=== PATIENT | male | born 1980 | race Caucasian/White ===

== ENCOUNTER → 2022-01-20 11:22 | Outpatient (CLI) | payer OTHER, SELFPAY ==
--- NOTE | ~2022-01-20 | MR_ITS ---
EXAMINATION: MR ankle RT wo con DATE: 01/20/2022 12:11 INDICATION: Right ankle sprain with instability TECHNIQUE: Magnetic resonance imaging (MRI) of the right ankle was performed without intravenous cont rast. Sequences included sagittal, coronal, and axial proton-density weighted fast spin echo without and with fat saturation. COMPARISON: None. FINDINGS: Medial ankle ligaments: Deep and superficial deltoid ligaments as well as the spring ligament are normal. Lateral ankle ligaments: The anterior and posterior inferior tibiofibular ligaments are normal. The anterior talofibular, calc aneofibular and posterior talofibular ligaments are normal. Tendons: Mild Achilles tendinosis without discrete tear. The peroneus longus and brevis tendons are normal. Th e tibialis anterior and extensor hallucis longus and extensor digitorum longus tendons are normal. Th e tibialis posterior, flexor digitorum longus and flexor hallucis longus tendons are normal. Plantar fascia: Plantar aponeurosis is normal. Bones/other: Prominent marrow edema throughout the navicula with a 1 mm thick fluid filled cleft underlying a thin nondisplaced subcortical fracture extending across the dorsal half of the distal articular surface. Portions of the fluid-filled cleft may represent extension of the fracture as delamination at the bon e chondral interface. There is marrow edema surrounding an additional likely healing nondisplaced fra cture at the plantar aspect of the lateral cuneiform. 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 No joint effusions. Prominent soft tissue edema centere d at the mid foot and extending into the visualized distal lower leg. IMPRESSION: 1. Nondisplaced ununited fracture underlying a significant portion of the distal articular cortex of the navicula tendons, portion of which could represent extension as delamination at the bone chondral interface. 2. Likely healing nondisplaced fracture at the plantar aspect of the lateral cuneiform. 3. Small focus of high-grade chondromalacia with underlying cystlike change at the distal articular s urface of the calcaneus. 4. Mild Achilles tendinosis. Reviewed, dictated and finalized at location B. IMPRESSION: 1. Nondisplaced ununited fracture underlying a significant portion of the dista l articular cortex of the navicula tendons, portion of which could represent ex tension as delamination at the bone chondral interface. 2. Likely healing nondisplaced fracture at the plantar aspect of the lateral cu neiform. 3. Small focus of high-grade chondromalacia with underlying cystlike change at the distal articular surface of the calcaneus. 4. Mild Achilles tendinosis.
== END ==
PROVIDERS: PCP Physician Assistant Medical; Visit Provider Physician Assistant Medical
DX: S93.401A Sprain of unspecified ligament of right ankle, initial encounter (principal); S82.891A Other fracture of right lower leg, initial encounter for closed fracture; S92.224A Nondisplaced fracture of lateral cuneiform of right foot, initial encounter for closed fracture; M94.271 Chondromalacia, right ankle and joints of right foot; M76.61 Achilles tendinitis, right leg
CPT/HCPCS: 73721

== ENCOUNTER → 2022-07-23 09:45 | Outpatient (CLI) | payer OTHER, SELFPAY ==
--- NOTE | ~2022-07-23 | MR_ITS ---
MRI of the right ankle Clinical history: Pain and swelling Technique: Coronal proton-density and proton-density fat-sat images, axial proton-density and proton- density fat-sat images, and sagittal proton-density and proton-density fat-sat images were acquired. COMPARISON: 01/20/2022 Findings: Syndesmotic ligaments are intact. Anterior and posterior talofibular ligaments, and calcane ofibular ligament, are intact. Deltoid ligament is intact. Medial flexor tendons, peroneal tendons, anterior extensor tendons, and Achilles tendon are intact. T here is mild tendinosis and probable low-grade interstitial tearing of the distal Achilles tendon. There is extensive fragmentation of the navicular bone. There is extensive marrow edema involving the cuboid, cuneiforms, anterior calcaneus, and navicular fragments. There is probable mild to moderate degenerative change at the tarsometatarsal joints, especially the second, third, and fourth. There is edema the plantar musculature of the foot, with mild soft tissue edema throughout the midfoot and hi ndfoot regions. Plantar fascia is intact. No significant joint effusion. Impression: Extensive fragmentation of the navicular bone. This could reflect progression of the previously noted fracture versus possibly sequelae of avascular necrosis or developing Charcot foot. Correlate clinic ally. Additional extensive reactive marrow edema in the calcaneus, navicular fragments, cuboid, and cuneifo ramesh. Again, this could reflect altered biomechanics and stress response versus bone contusions, or ag ain, possibly developing Charcot foot. Reviewed, dictated and finalized at location . [employer] Impression: Extensive fragmentation of the navicular bone. This could reflect progression o f the previously noted fracture versus possibly sequelae of avascular necrosis or developing Charcot foot. Correlate clinically. Additional extensive reactive marrow edema in the calcaneus, navicular fragment s, cuboid, and cuneiforms. Again, this could reflect altered biomechanics and s tress response versus bone contusions, or again, possibly developing Charcot fo ot.
== END ==
PROVIDERS: PCP Orthopaedic Surgery; Visit Provider Physician Assistant Medical
DX: M25.571 Pain in right ankle and joints of right foot (principal); M79.89 Other specified soft tissue disorders
CPT/HCPCS: 73721

== ENCOUNTER → 2022-10-06 09:44 | Outpatient (CLI) | payer OTHER, SELFPAY ==
--- NOTE | ~2022-10-06 | US_ITS ---
US abdomen complete DATE: 10/06/2022 12:00 INDICATION: Elevated liver enzyme levels TECHNIQUE: Real-time imaging of the abdomen, Doppler analysis COMPARISON: None FINDINGS: There is hepatic steatosis. No hepatic space-occupying mass lesion is evident. No evidence of gallstones or gallbladder wall thickening or abnormal pericholecystic fluid collection. Negative s onographic Ochoa's sign. The common bile duct measures 3 mm, normal. The pancreatic tail is obscured but the pancreas otherwise appears unremarkable. No renal mass lesion or hydronephrosis. The right kidney measures approximately 14 cm length, left ki dney 13.4 cm. Normal splenic size. Normal caliber of the abdominal aorta. Inferior vena cava is unremarkable. IMPRESSION: Hepatic steatosis Reviewed, dictated and finalized at Location A. Reviewed, dictated and finalized at location L. IMPRESSION: Hepatic steatosis
== END ==
PROVIDERS: PCP Physician Assistant Medical; Visit Provider Physician Assistant Medical
DX: R74.01 Elevation of levels of liver transaminase levels (principal); K76.0 Fatty (change of) liver, not elsewhere classified
CPT/HCPCS: 76700